=== PATIENT | female | born 1945 | race Caucasian/White ===

== ENCOUNTER 2018-06-08 09:56 | Day surgery (SDC) | payer MEDICARE ==
[~2018-06-08 09:56] MED LIST: ACETAMINOPHEN 325 MG TAB PO; PHENYLEPHRINE 2.5% OPHTH SOL 2ML OD; PROPARACAINE 0.5% OPHTH SOL 15ML OD; TROPICAMIDE 1% OPHTH SOLN 2ML OD
[2018-06-08 10:58] LABS: BEDSIDE GLUCOSE 131 MG/DL (83-110)
[2018-06-08] MEDS ORDERED: PROPOFOL 200 MG/20 ML VIAL As Ordered (11:34)
[2018-06-08] MEDS ORDERED: LIDOCAINE 2% INJ 100 MG/5 ML SDV (FOR ANES.) As Ordered (11:34)
[2018-06-08] MEDS: PILOCARPINE 1% OPHTH SOLN 15 ML OD (11:35)
[2018-06-08] MEDS: OFLOXACIN 0.3 % (OCUFLOX) OPTH SOL 5ML OD (11:35)
[2018-06-08] MEDS: PROPARACAINE 0.5% OPHTH SOL 15ML OD (11:35)
[2018-06-08] MEDS ORDERED: MIDAZOLAM INJ 2 MG/2 ML VIAL (J2250) As Ordered (11:35)
[2018-06-08] MEDS ORDERED: fentaNYL 100 MCG/2 ML INJECTION (J3010) As Ordered (11:35)
[2018-06-08] MEDS: LIDOCAINE 0.75%/EPINEPHRINE 0.025% IN BSS 1ML SYR INTRACAMERAL (OR ONLY) As Ordered (12:10)
[2018-06-08] MEDS: TRYPAN BLUE 0.06 % 2.25 ML OPHTH SYR (VISIONBLUE) As Ordered (12:11)
[2018-06-08] MEDS: BALANCED SALT IRRIGATION SOLUTION 500ML BAG (FOR OR EYE MACHINE) As Ordered (12:16)
[2018-06-08] MEDS ORDERED: ONDANSETRON 4MG/2ML VIAL (J2405) As Ordered (12:34)
[2018-06-08] MEDS ORDERED: ePHEDrine SULFATE 25 MG/5 ML(5MG/ML) SYRINGE As Ordered (12:37)
[2018-06-08] MEDS: DUOVISC (0.50ML VISCOAT/0.55ML PROVISC) OPHTH KIT As Ordered (13:13)
[2018-06-08] MEDS ORDERED: METOCLOPRAMIDE INJ 10MG/2ML VIAL (J2765) As Ordered (13:15)
[2018-06-08] MEDS: ACETYLCHOLINE OPHTH SOLN 1% 2ML (MIOCHOL-E) As Ordered (13:18)
[2018-06-08] MEDS: CEFUROXIME 1MG/0.1ML INTRACAMERAL INJ As Ordered (13:21)
[2018-06-08] MEDS: TOBRADEX OPHTH OINT 3.5 GM As Ordered (13:22)
[2018-06-08] MEDS ORDERED: ONDANSETRON 4MG/2ML VIAL (J2405) IV (14:00)
[2018-06-08] MEDS ORDERED: TRIMETHOBENZAMIDE 300 MG CAP PO (14:00)
== END 2018-06-08 15:15 | disposition home or self-care (01) ==
LOC: M SDC 09:56
DX: H18.51 Endothelial corneal dystrophy (principal); H27.01 Aphakia, right eye; J44.9 Chronic obstructive pulmonary disease, unspecified; I10 Essential (primary) hypertension; E11.9 Type 2 diabetes mellitus without complications; E78.00 Pure hypercholesterolemia, unspecified; E78.4 Other hyperlipidemia; F17.210 Nicotine dependence, cigarettes, uncomplicated; D64.9 Anemia, unspecified; Z79.899 Other long term (current) drug therapy
CPT/HCPCS: 65756

== ENCOUNTER → 2020-10-06 | Outpatient (CLI) | payer MEDICARE ==
[~2020-10-06] MED LIST changes: -ACETAMINOPHEN 325 MG TAB PO; +AMIT24CA7 PO; +ASPI81TA85 PO; +COLA50CA3 PO; +CRES10TA PO; +DULE200A INH; +FURO20TA2 PO; +FURO40TA2 PO; +GLIM4TAB5 PO; +HYDR-3363 PO; +JANU100T PO; +LIPI80TA PO; +LISI5TAB PO; +LOSA25TA14 PO; +METF10004 PO; +METF500T PO; +NAPR220T PO; +NORC1TAB7 PO; +NORCOTAB PO; +OXYC1TAB23 PO; -PHENYLEPHRINE 2.5% OPHTH SOL 2ML OD; +POLY1POW4 PO; -PROPARACAINE 0.5% OPHTH SOL 15ML OD; +SENN-22 PO; +SENNSYP PO; +SOMA350T PO; -TROPICAMIDE 1% OPHTH SOLN 2ML OD; +ZOLP-189 PO
--- NOTE | 2020-10-06 17:45 | REP ---
INDICATION: CKD 4. COMPARISON: 09/06/2016. TECHNIQUE: Real-time sonographic evaluation of the kidneys is performed. FINDINGS: Renal cortical echogenicity pattern is normal bilaterally and contours are smooth. There is no evidence of hydronephrosis or calculus in either kidney. The right kidney measures 10.8 x 4.2 x 4.3 cm. Left renal dimensions are 9.9 x 4.7 x 4.8 cm. A cyst in the upper pole the right kidney measures 2.5 cm in diameter and another in the mid aspect measures 1.7 x 1.0 x 2.1 cm. A cystic structure in the upper pole of the left kidney measures 6 mm. IMPRESSION: Bilateral renal cysts. No hydronephrosis. <Electronically signed by Charbel Aguilera > 10/06/20 [id number]
--- NOTE | 2020-10-06 17:46 | REP ---
INDICATION: CKD 4. COMPARISON: 09/06/2016. TECHNIQUE: Real-time sonographic evaluation of urinary bladder performed. FINDINGS: Bladder is well distended with no mass or calculus. It measures 6.8 x 8.0 x 5.2 cm for total volume of 185 cc. After voiding there is no postvoid residual. IMPRESSION: Unremarkable bladder ultrasound. <Electronically signed by Charbel Aguilera > 10/06/20 [id number]
== END ==
LOC: M RAD 15:30
PROVIDERS: ATTEND Internal Medicine Nephrology
DX: N18.4 Chronic kidney disease, stage 4 (severe) (principal)

== ENCOUNTER → 2020-10-27 | Outpatient (CLI) | payer MEDICARE ==
--- NOTE | 2020-10-27 14:30 | REP ---
INDICATION: CKD STAGE 4, PROTEINURIA, HYPERPARATHYROIDISM. With SPECT imaging. COMPARISON: None. TECHNIQUE: 27.3 mCi of technetium 99 M sestamibi is injected. 15 minutes delay and 3 hour delayed planar images of the neck and chest are acquired. SPECT acquisition is acquired and coronal, sagittal, and axial SPECT images are regenerated. Three-dimensional images are reviewed. FINDINGS: Initial 15 minutes images demonstrate expected salivary and thyroid glandular uptake. The right lobe is larger than the left. There is initial uptake in a nodule at the level of the suprasternal notch just to the right of midline. This fades on 3 hour images along with the rest of the thyroid in this may be a multinodular right thyroid. There is no significant focus of retained uptake on post delayed SPECT or three-dimensional images. IMPRESSION: Pattern suggest multinodular goiter on the right. There is a focus of initial uptake just above the suprasternal notch to the right of midline. This could be further evaluated the soft tissue neck CT study. No definite persistent focus to suggest parathyroid adenoma. <Electronically signed by Jorge Goodrich > 10/27/20 [id number]
== END ==
LOC: M RAD 09:36
PROVIDERS: ATTEND Internal Medicine Nephrology
DX: R80.9 Proteinuria, unspecified (principal); N18.4 Chronic kidney disease, stage 4 (severe); E21.3 Hyperparathyroidism, unspecified
CPT/HCPCS: 78803; A9500

== ENCOUNTER → 2020-11-03 | Outpatient (REF) | payer MEDICARE ==
[2020-11-03 18:24] LABS: TOTAL PROTEIN 7.7 GM/DL (6.4-8.2)
[2020-11-03 18:33] LABS: FREE T4 1.02 NG/DL (0.76-1.46); THYROID STIMULATING HORMONE 3.68 uIU/ML (0.358-3.740)
[2020-11-03 18:37] LABS: HEPATITIS B SURFACE ANTIBODY NEGATIVE (POSITIVE)
[2020-11-03 18:48] LABS: HEPATITIS B SURFACE ANTIGEN NEGATIVE (NEGATIVE)
[2020-11-03 19:16] LABS: HEPATITIS C VIRUS ABY INDEX 0.1 INDEX (<0.8)
[2020-11-03 19:17] LABS: HEPATITIS B CORE ANTIBODY IGM NEGATIVE (NEGATIVE)
[2020-11-04 12:13] LABS: ALBUMIN 4.24 GM/DL (3.29-5.55); ALBUMIN % 55.1 % (55.8-66.1); ALPHA-1-GLOBULIN % 5.1 % (2.9-4.9); ALPHA-1-GLOBULINS 0.39 GM/DL (0.17-0.41); ALPHA-2-GLOBULINS 1.05 GM/DL (0.42-0.99); ALPHA-2-GLOBULINS % 13.6 % (7.1-11.8); BETA-1-GLOBULINS 0.49 GM/DL (0.28-0.60); BETA-1-GLOBULINS % 6.3 % (4.7-7.2); BETA-2-GLOBULINS 0.72 GM/DL (0.19-0.55); BETA-2-GLOBULINS % 9.3 % (3.2-6.5); GAMMA GLOBULIN % 10.6 % (11.1-18.8); GAMMA GLOBULINS 0.82 GM/DL (0.65-1.58)
[2020-11-06 16:10] LABS: ANCA-ATYPICAL <1:20 titer (Neg:<1:20); ANTI DS-DNA AB Negative (Negative); ANTINUCLEAR ANTIBODIES DIRECT Negative (Negative); CYTOPLASMIC NEUTROP AB ANCA-C <1:20 titer (Neg:<1:20); FREE LAMBDA LIGHT CHAINS SERUM 384.1 mg/L (5.7-26.3); KAPPA/LAMBDA RATIO SERUM 0.15 (0.26-1.65); PERINUCLEAR AB ANCA-P <1:20 titer (Neg:<1:20)
== END ==
LOC: M LAB REF 17:02
PROVIDERS: ATTEND Internal Medicine Nephrology
DX: R80.9 Proteinuria, unspecified (principal); E04.2 Nontoxic multinodular goiter

== ENCOUNTER → 2020-11-17 | Outpatient (CLI) | payer MEDICARE ==
--- NOTE | 2020-11-17 08:14 | REP ---
INDICATION: NON TOXIC MULIT GOITER XR 1ST/CT 2ND COMPARISON: 09/29/2015 TECHNIQUE: PA and lateral. FINDINGS: The mediastinum and cardiac silhouette are normal. The lung ochoa demonstrate stable chronic changes without obvious acute consolidation, effusion, or pneumothorax. The skeletal structures are intact and normal. IMPRESSION: Chronic stable changes. No acute cardiopulmonary process appreciated. <Electronically signed by Tate Pierre > 11/17/20 [id number]
--- NOTE | 2020-11-17 08:39 | REP ---
INDICATION: NON TOXIC MULIT GOITER XR 1ST/CT 2ND. Chronic smoker with persistent hypercalcemia. Multinodular goiter on nuclear parathyroid scan. COMPARISON: Comparison radionuclide scan October 27, 2020.. TECHNIQUE: Helical scanning is acquired and 3 mm axial images are re-formatted. Coronal and sagittal MPR images are generated. FINDINGS: Preliminary digital race relations adviser radiographs demonstrate that the maxilla and mandible are edentulous. Parotid and submandibular glands are normal and symmetric. Visualized paranasal sinuses are clear. There is some vascular calcification in the distal internal carotid arteries. No intraorbital abnormality is seen. Visualized intracranial structures are unremarkable. Vascular calcification is also noted at the carotid bifurcations bilaterally. The right thyroid lobe is enlarged and contains 2 observable nodules. The largest of these measures 2.5 x 1.5 x 1.7 cm. There is also is 1.0 cm [place] nodule in the right lobe. The left lobe contains a low-density area measuring 0.8 cm in diameter consistent with a small left-sided nodule. No mass or adenopathy is seen in the neck. The visualized superior mediastinal structures are unremarkable. The lung apices are clear. No bony destructive lesion is seen. There are degenerative spondylosis changes in the cervical spine. The left C2-3 and ceased left C3-4 facet joints appear to be fused. IMPRESSION: Multinodular thyroid with 2 nodules identified on the right and 1 on the left as described above. No extrathyroidal adenopathy. No other evidence of mass. Degenerative spondylosis in the cervical spine. <Electronically signed by Jorge Goodrich > 11/17/20 [id number]
== END ==
LOC: M RAD 07:28
PROVIDERS: ATTEND Internal Medicine Nephrology
DX: N18.4 Chronic kidney disease, stage 4 (severe) (principal); R04.2 Hemoptysis; R82.994 Hypercalciuria; F17.210 Nicotine dependence, cigarettes, uncomplicated; M47.812 Spondylosis without myelopathy or radiculopathy, cervical region; E04.2 Nontoxic multinodular goiter

== ENCOUNTER → 2021-09-16 | Outpatient (REF) | payer MEDICARE | LOC: M LAB REF 17:19 | PROVIDERS: ATTEND Physician Assistant | DX: C44.311 Basal cell carcinoma of skin of nose (principal) | CPT/HCPCS: 11102; 88305; G0463 ==

== ENCOUNTER 2022-07-03 08:04 | Emergency (ER) | payer MEDICARE ==
[~2022-07-03] VITALS: Ht 162.6 cm; Wt 85.9 kg
[2022-07-03 08:04] VITALS: BP 165/91
[~2022-07-03 08:04] MED LIST changes: +LOSA25TA13 PO; -LOSA25TA14 PO
[2022-07-03] MEDS ORDERED: FAMO40TA3 (08:13)
[2022-07-03] MEDS ORDERED: CINA30TA5 (08:13)
[2022-07-03] MEDS ORDERED: GLIP5TAB8 (08:13)
[2022-07-03] MEDS ORDERED: AMLO1TAB24 (08:13)
[2022-07-03] MEDS ORDERED: PREDOPD (08:13)
[2022-07-03] MEDS ORDERED: ALBU2.5V10 (08:13)
== END 2022-07-03 10:29 | disposition home or self-care (01) ==
LOC: M ED 08:04
DX: S83.91XA Sprain of unspecified site of right knee, initial encounter (principal); V48.4XXA Person boarding or alighting a car injured in noncollision transport accident, initial encounter; E11.9 Type 2 diabetes mellitus without complications; I10 Essential (primary) hypertension; J44.9 Chronic obstructive pulmonary disease, unspecified

== ENCOUNTER → 2022-07-08 | Outpatient (CLI) | payer MEDICARE ==
[~2022-07-08] MED LIST changes: +ALBU2.5V10; +AMLO1TAB24; +CINA30TA5; -DULE200A INH; +FAMO40TA3; +GLIP5TAB8; +MOME13HF7 INH; +PREDOPD
== END ==
LOC: M SOG 15:40
PROVIDERS: ATTEND Orthopaedic Surgery Adult Reconstructive Orthopaedic Surgery
DX: M25.561 Pain in right knee (principal); M11.161 Familial chondrocalcinosis, right knee

== ENCOUNTER 2022-11-23 07:48 | Outpatient (RCR) | payer MEDICARE | END 2022-11-30 | LOC: M PT 07:48 | PROVIDERS: ATTEND Orthopaedic Surgery Adult Reconstructive Orthopaedic Surgery | DX: M54.50 Low back pain, unspecified (principal) ==

== ENCOUNTER 2023-01-13 05:39 | Emergency (ER) | payer MEDICARE ==
[~2023-01-13] VITALS: Ht 154.9 cm; Wt 84.4 kg
[2023-01-13] MEDS ORDERED: methylPREDNISolone 125MG 2ML VIAL IV ONE (06:20)
[2023-01-13 06:43] LABS: BASO # 0.1 10^3/uL (0.0-0.2); BASO % 0.7 % (0.0-1.0); EOS # 0.2 10^3/uL (0.0-0.5); EOS % 2.1 % (0.0-3.0); LYMPH # 1.4 10^3/uL (1.5-5.0); LYMPH % 14.6 % (24.0-44.0); MEAN CORPUSCULAR HEMOGLOBIN 29.4 pg (27.0-33.0); MEAN CORPUSCULAR HGB CONC 32.6 g/dl (32.0-36.5); MEAN CORPUSCULAR VOLUME 90.2 fl (80.0-96.0); MONO # 0.6 10^3/uL (0.0-0.8); MONO % 5.8 % (2.0-8.0); NEUTROPHILS # 7.4 10^3/uL (1.5-8.5); NEUTROPHILS % 76.5 % (36.0-66.0); PLATELET COUNT, AUTOMATED 369 10^3/uL (150-450); WHITE BLOOD COUNT 9.7 10^3/uL (4.0-10.0)
[2023-01-13 07:02] LABS: CK-MB VALUE MASS 1.9 NG/ML (<3.6)
[2023-01-13 07:03] LABS: MB/CK RELATIVE INDEX 2.37 (< OR =4)
[2023-01-13 07:04] LABS: ALBUMIN 3.8 G/DL (3.2-5.2); BILIRUBIN,DIRECT 0.1 MG/DL (<0.4); BILIRUBIN,TOTAL 0.3 MG/DL (0.3-1.2); CALCIUM LEVEL 10.6 MG/DL (8.3-10.6); CREATININE FOR GFR 1.53 MG/DL (0.55-1.30); GLOMERULAR FILTRATION RATE 34.9 (>39); POTASSIUM SERUM 4.1 MMOL/L (3.5-5.1); TOTAL PROTEIN 7.2 G/DL (5.7-8.2)
[2023-01-13 07:05] LABS: THYROXINE (T4) 8.9 UG/DL (4.5-10.9)
[2023-01-13 07:06] LABS: THYROID STIMULATING HORMONE 4.381 uIU/ML (0.55-4.78)
[2023-01-13] MEDS ORDERED: ISOVUE-370 76% 100ML VIAL As Ordered ONE (07:20)
[2023-01-13 08:08] LABS: MB/CK RELATIVE INDEX 1.83 (< OR =4)
[2023-01-13 09:25] VITALS: O2SAT 96
[2023-01-13] MEDS ORDERED: ALBUTEROL 90 MCG/ACT 8GM HFA INHALER INH ONE (09:25)
[2023-01-13] MEDS ORDERED: AZITHROMYCIN 250MG TABLET PO ONE (09:25)
[2023-01-13] MEDS ORDERED: PRED10TA2 PO (09:26)
[2023-01-13] MEDS ORDERED: AZIT500T5 PO (09:26)
[2023-01-13] MEDS ORDERED: VENTAER INH (09:26)
[2023-01-13 10:09] VITALS: BP 149/79
== END 2023-01-13 10:11 | disposition home or self-care (01) ==
LOC: M ED 05:39
DX: J44.1 Chronic obstructive pulmonary disease with (acute) exacerbation (principal); J18.9 Pneumonia, unspecified organism; E04.1 Nontoxic single thyroid nodule; E11.9 Type 2 diabetes mellitus without complications; I10 Essential (primary) hypertension; E78.5 Hyperlipidemia, unspecified; F17.200 Nicotine dependence, unspecified, uncomplicated; Z88.8 Allergy status to other drugs, medicaments and biological substances; Z79.84 Long term (current) use of oral hypoglycemic drugs; Z79.51 Long term (current) use of inhaled steroids; Z79.899 Other long term (current) drug therapy
CPT/HCPCS: 36415; 71045; 71275; 80048; 80076; 82550; 82553; 83880; 84436; 84443; 84484; 85025; 87040; 87486; 87581; 87633; 87798; 93005; 93041; 93971; 94640; 94760; 99285; Q9967

== ENCOUNTER 2023-02-19 09:29 | Inpatient (IN) | payer MEDICARE ==
[~2023-02-19] VITALS: Ht 157.5 cm; Wt 84.6 kg
[~2023-02-19 09:29] MED LIST changes: -ALBU2.5V10; +ALBU2.5V10 NEB; -AMLO1TAB24; +AMLO1TAB24 PO; +AZIT500T5 PO; -CINA30TA5; +CINA30TA5 PO; -FAMO40TA3; +FAMO40TA3 PO; -GLIP5TAB8; +GLIP5TAB8 PO; +MIRALAX *UNIT DOSE* 17GM PACKET PO SCH; +PRED10TA2 PO; +VENTAER INH
[2023-02-19] MEDS ORDERED: TOUJ300I2 SC (09:47)
[2023-02-19] MEDS ORDERED: ALBUTEROL SULFATE 2.5MG/0.5ML INH NEB SOLN INH ONE (09:50)
[2023-02-19] MEDS ORDERED: IPRATROPIUM 0.5MG/ALBUTEROL 2.5MG INH SOL UD 3ML (DUONEB) NEB ONE (09:50)
[2023-02-19 10:23] LABS: BASO # 0.1 10^3/uL (0.0-0.2); BASO % 0.5 % (0.0-1.0); EOS # 0.1 10^3/uL (0.0-0.5); EOS % 1.3 % (0.0-3.0); HEMATOCRIT 42.7 % (36.0-47.0); HEMOGLOBIN 13.6 g/dl (12.0-15.5); LYMPH # 1.3 10^3/uL (1.5-5.0); LYMPH % 12.9 % (24.0-44.0); MEAN CORPUSCULAR HEMOGLOBIN 29.3 pg (27.0-33.0); MEAN CORPUSCULAR HGB CONC 31.9 g/dl (32.0-36.5); MONO # 0.8 10^3/uL (0.0-0.8); MONO % 7.3 % (2.0-8.0); NEUTROPHILS # 8.1 10^3/uL (1.5-8.5); NEUTROPHILS % 77.5 % (36.0-66.0); PLATELET COUNT, AUTOMATED 341 10^3/uL (150-450); RED BLOOD COUNT 4.64 10^6/uL (4.00-5.40); WHITE BLOOD COUNT 10.4 10^3/uL (4.0-10.0)
[2023-02-19 10:26] LABS: ABG BASE EXCESS -1.2 (-2.0-2.0); ABG HCO3 22.5 MEQ/L (22.0-26.0); ABG O2 SATURATION 86.9 % (95.0-99.0); ABG PARTIAL PRESSURE CO2 34.9 mmHg (35.0-45.0); ABG STANDARD HCO3 23.2 MEQ/L (22.0-26.0); ABG TOTAL CO2 23.6 MEQ/L (23.0-31.0); ABG pH (ARTERIAL) 7.428 UNITS (7.350-7.450)
[2023-02-19 10:34] LABS: INR 0.89; PROTHROMBIN TIME 12.2 SECONDS (12.5-14.5)
[2023-02-19 10:49] LABS: CK-MB VALUE MASS 1.9 NG/ML (<3.6)
[2023-02-19 10:51] LABS: ALBUMIN 3.1 G/DL (3.2-5.2); BILIRUBIN,DIRECT 0.1 MG/DL (<0.4); BILIRUBIN,TOTAL 0.2 MG/DL (0.3-1.2); CALCIUM LEVEL 9.1 MG/DL (8.3-10.6); CREATININE FOR GFR 1.56 MG/DL (0.55-1.30); GLOMERULAR FILTRATION RATE 34.1 (>39); MB/CK RELATIVE INDEX 1.77 (< OR =4); POTASSIUM SERUM 4.7 MMOL/L (3.5-5.1); TOTAL PROTEIN 6.1 G/DL (5.7-8.2)
[2023-02-19 10:53] LABS: THYROID STIMULATING HORMONE 2.593 uIU/ML (0.55-4.78); THYROXINE (T4) 11.8 UG/DL (4.5-10.9)
[2023-02-19] MEDS ORDERED: AZITHROMYCIN INJ 500 MG, VIAL MATE ADAPTER 1 EACH in D5W 250 ML IV ONE (11:45)
[2023-02-19] MEDS ORDERED: cefTRIAXone SOD 1 GM in D5W MINI-BAG PLUS 50 ML IV ONE (11:45)
[2023-02-19 11:52] LABS: CK-MB VALUE MASS 1.9 NG/ML (<3.6)
[2023-02-19 11:53] LABS: MB/CK RELATIVE INDEX 1.74 (< OR =4)
[2023-02-19] MEDS ORDERED: GLUCOSE 4GM CHEW TABLET PO PRN (12:35)
[2023-02-19] MEDS ORDERED: DEXTROSE 50% 50ML SYRINGE IV PRN (12:35)
[2023-02-19] MEDS ORDERED: GLUCAGON INJ 1MG VIAL SC PRN (12:35)
[2023-02-19] MEDS ORDERED: VENTAER INH (13:53)
[2023-02-19] MEDS ORDERED: ACET-897 PO (13:54)
[2023-02-19] MEDS ORDERED: HOME MED LIST COMPLETE! XX SCH (13:55)
[2023-02-19] MEDS: ALBUTEROL SULFATE 2.5MG/0.5ML INH NEB SOLN NEB SCH ×3 (15:14→23:22)
[2023-02-19] MEDS: IPRATROPIUM 0.02% SOLN 0.5MG 2.5ML NEB INH SCH ×3 (15:14→23:22)
[2023-02-19 15:51] VITALS: BP 129/72
[2023-02-19] MEDS: methylPREDNISolone 125MG 2ML VIAL IV SCH ×2 (16:54→20:37)
[2023-02-19] MEDS: FAMOTIDINE 20 MG TAB PO SCH (16:55)
[2023-02-19] MEDS: SITagliptin 50 MG TAB (JANUVIA) PO SCH (16:55)
[2023-02-19] MEDS: ROSUVASTATIN 10 MG TAB (CRESTOR) PO SCH (16:55)
[2023-02-19] MEDS: INSULIN LISPRO (NovoLOG) PER UNIT SC SCH ×2 (17:07→20:39)
[2023-02-19] MEDS ORDERED: FUROSEMIDE 40MG/4ML VIAL IV ONE (17:40)
[2023-02-19] MEDS: BUDESONIDE 0.5 MG/2 ML INHALATION SUSPENSION INH SCH (19:08)
[2023-02-19 20:00] VITALS: BP 133/65
[2023-02-19] MEDS: amLODIPine 5 MG TAB PO SCH (20:37)
[2023-02-19] MEDS: SENOKOT S TAB PO SCH (20:37)
[2023-02-19] MEDS: LEVEMIR (INSULIN DETEMIR) 1 UNITS/0.01ML SC SCH (20:38)
[2023-02-19] MEDS: LIDOCAINE 5% (LIDODERM) PATCH TD SCH (20:39)
[2023-02-19] MEDS: MIRALAX *UNIT DOSE* 17GM PACKET PO SCH (20:40)
[2023-02-19] MEDS ORDERED: glipiZIDE (GLUCOTROL) 5 MG TAB PO SCH (21:00)
[2023-02-19 23:56] VITALS: BP 134/65
[2023-02-20] MEDS: methylPREDNISolone 125MG 2ML VIAL IV SCH ×4 (03:12→20:01)
[2023-02-20 03:53] VITALS: BP 131/73
[2023-02-20] MEDS: IPRATROPIUM 0.02% SOLN 0.5MG 2.5ML NEB INH SCH ×3 (04:00→11:32)
[2023-02-20] MEDS: ALBUTEROL SULFATE 2.5MG/0.5ML INH NEB SOLN NEB SCH ×3 (04:00→11:32)
[2023-02-20 04:23] LABS: BASO % 0.2 % (0.0-1.0); HEMATOCRIT 42.6 % (36.0-47.0); HEMOGLOBIN 13.6 g/dl (12.0-15.5); LYMPH # 0.8 10^3/uL (1.5-5.0); LYMPH % 4.5 % (24.0-44.0); MEAN CORPUSCULAR HEMOGLOBIN 28.9 pg (27.0-33.0); MEAN CORPUSCULAR HGB CONC 31.9 g/dl (32.0-36.5); MEAN CORPUSCULAR VOLUME 90.4 fl (80.0-96.0); MONO # 0.3 10^3/uL (0.0-0.8); MONO % 1.5 % (2.0-8.0); NEUTROPHILS # 17.1 10^3/uL (1.5-8.5); NEUTROPHILS % 93.3 % (36.0-66.0); PLATELET COUNT, AUTOMATED 365 10^3/uL (150-450); RED BLOOD COUNT 4.71 10^6/uL (4.00-5.40); WHITE BLOOD COUNT 18.3 10^3/uL (4.0-10.0)
[2023-02-20 04:54] LABS: CALCIUM LEVEL 9.9 MG/DL (8.3-10.6); CREATININE FOR GFR 1.58 MG/DL (0.55-1.30); GLOMERULAR FILTRATION RATE 33.6 (>39); POTASSIUM SERUM 4.9 MMOL/L (3.5-5.1)
[2023-02-20] MEDS: SODIUM CHLORIDE NASAL 0.65% SPRAY BTL (OCEAN) PRN ×2 (06:33→20:02)
[2023-02-20] MEDS: BUDESONIDE 0.5 MG/2 ML INHALATION SUSPENSION INH SCH ×2 (07:23→19:07)
[2023-02-20 07:30] VITALS: BP 129/64
[2023-02-20] MEDS: NICOTINE 21MG/24HR 1 EA TRANSDERMAL TD SCH ×2 (09:00→18:00)
[2023-02-20] MEDS: SITagliptin 50 MG TAB (JANUVIA) PO SCH (09:41)
[2023-02-20] MEDS: ROSUVASTATIN 10 MG TAB (CRESTOR) PO SCH (09:41)
[2023-02-20] MEDS: AZITHROMYCIN 250MG TABLET PO SCH (09:42)
[2023-02-20] MEDS: MIRALAX *UNIT DOSE* 17GM PACKET PO SCH ×2 (09:42→20:24)
[2023-02-20] MEDS: SENOKOT S TAB PO SCH ×2 (09:42→20:24)
[2023-02-20] MEDS: FAMOTIDINE 20 MG TAB PO SCH (09:42)
[2023-02-20] MEDS: amLODIPine 5 MG TAB PO SCH ×2 (09:42→20:03)
[2023-02-20] MEDS: ENOXAPARIN 40MG/0.4ML SYRINGE (J1650 PER 10MG) SC SCH (09:43)
[2023-02-20] MEDS: INSULIN LISPRO (NovoLOG) PER UNIT SC SCH ×4 (09:44→20:12)
[2023-02-20] MEDS: guaiFENesin/CODEINE SYRUP 5 ML UDC PO PRN ×2 (10:37→15:51)
[2023-02-20 11:54] VITALS: BP 136/63
[2023-02-20] MEDS: IPRATROPIUM 0.5MG/ALBUTEROL 2.5MG INH SOL UD 3ML (DUONEB) NEB SCH ×2 (15:02→19:08)
[2023-02-20 16:11] VITALS: BP 111/58
[2023-02-20 19:50] VITALS: BP 113/72
[2023-02-20] MEDS: LIDOCAINE 5% (LIDODERM) PATCH TD SCH (20:02)
[2023-02-20] MEDS: LEVEMIR (INSULIN DETEMIR) 1 UNITS/0.01ML SC SCH (20:12)
[2023-02-20] MEDS ORDERED: IPRATROPIUM 0.02% SOLN 0.5MG 2.5ML NEB INH PRN (21:25)
[2023-02-20] MEDS ORDERED: LEVALBUTEROL 1.25MG 0.5ML CONCENTRATE NEB NEB ONE (21:25)
[2023-02-20] MEDS ORDERED: ALBUTEROL SULFATE 2.5MG/0.5ML INH NEB SOLN NEB PRN ×2 (21:55→23:45)
[2023-02-20] MEDS ORDERED: ALBUTEROL SULFATE 2.5MG/0.5ML INH NEB SOLN NEB ONE (22:00)
[2023-02-20] MEDS ORDERED: RAMELTEON 8 MG TAB (ROZEREM) PO PRN (23:50)
[2023-02-21] MEDS ORDERED: hydrOXYzine 50 MG TAB PO ONE
[2023-02-21] MEDS: ALBUTEROL SULFATE 2.5MG/0.5ML INH NEB SOLN NEB SCH ×7 (00:14→23:48)
[2023-02-21] MEDS: IPRATROPIUM 0.02% SOLN 0.5MG 2.5ML NEB INH SCH ×7 (00:14→23:49)
[2023-02-21] MEDS: methylPREDNISolone 125MG 2ML VIAL IV SCH (03:07)
[2023-02-21] MEDS: guaiFENesin/CODEINE SYRUP 5 ML UDC PO PRN ×3 (03:11→21:25)
[2023-02-21 05:10] VITALS: BP 129/71
[2023-02-21 05:56] LABS: BASO % 0.2 % (0.0-1.0); HEMATOCRIT 38.9 % (36.0-47.0); HEMOGLOBIN 12.9 g/dl (12.0-15.5); LYMPH # 0.8 10^3/uL (1.5-5.0); MEAN CORPUSCULAR HEMOGLOBIN 29.8 pg (27.0-33.0); MEAN CORPUSCULAR HGB CONC 33.2 g/dl (32.0-36.5); MEAN CORPUSCULAR VOLUME 89.8 fl (80.0-96.0); MONO # 0.5 10^3/uL (0.0-0.8); MONO % 2.1 % (2.0-8.0); NEUTROPHILS # 24.3 10^3/uL (1.5-8.5); NEUTROPHILS % 93.4 % (36.0-66.0); PLATELET COUNT, AUTOMATED 365 10^3/uL (150-450); RED BLOOD COUNT 4.33 10^6/uL (4.00-5.40)
[2023-02-21 06:21] LABS: CALCIUM LEVEL 9.9 MG/DL (8.3-10.6); CREATININE FOR GFR 1.75 MG/DL (0.55-1.30); GLOMERULAR FILTRATION RATE 29.8 (>39); POTASSIUM SERUM 5.2 MMOL/L (3.5-5.1)
[2023-02-21] MEDS ORDERED: NS 500 ML IV ONE (07:55)
[2023-02-21] MEDS: BUDESONIDE 0.5 MG/2 ML INHALATION SUSPENSION INH SCH ×2 (07:56→21:50)
[2023-02-21] MEDS: INSULIN LISPRO (NovoLOG) PER UNIT SC SCH ×4 (08:07→20:33)
[2023-02-21] MEDS: MIRALAX *UNIT DOSE* 17GM PACKET PO SCH ×2 (08:07→21:25)
[2023-02-21] MEDS: ENOXAPARIN 40MG/0.4ML SYRINGE (J1650 PER 10MG) SC SCH (08:07)
[2023-02-21] MEDS: SITagliptin 50 MG TAB (JANUVIA) PO SCH (08:08)
[2023-02-21] MEDS: FAMOTIDINE 20 MG TAB PO SCH (08:09)
[2023-02-21] MEDS: AZITHROMYCIN 250MG TABLET PO SCH (08:09)
[2023-02-21] MEDS: CINACALCET 30 MG TAB (SENSIPAR) PO SCH (08:09)
[2023-02-21] MEDS: ROSUVASTATIN 10 MG TAB (CRESTOR) PO SCH (08:10)
[2023-02-21] MEDS: SENOKOT S TAB PO SCH ×2 (08:10→21:23)
[2023-02-21] MEDS: NICOTINE 21MG/24HR 1 EA TRANSDERMAL TD SCH (08:35)
[2023-02-21] MEDS: amLODIPine 5 MG TAB PO SCH ×2 (09:00→21:25)
[2023-02-21] MEDS: methylPREDNISolone 40MG 1ML VIAL IV SCH ×2 (10:54→18:13)
[2023-02-21 14:00] VITALS: BP 107/72
[2023-02-21 20:30] VITALS: BP 111/71
[2023-02-21] MEDS ORDERED: LEVEMIR (INSULIN DETEMIR) 1 UNITS/0.01ML SC SCH (21:00)
[2023-02-21] MEDS: LIDOCAINE 5% (LIDODERM) PATCH TD SCH (21:23)
[2023-02-22] MEDS: methylPREDNISolone 40MG 1ML VIAL IV SCH ×3 (02:27→18:01)
[2023-02-22] MEDS: IPRATROPIUM 0.02% SOLN 0.5MG 2.5ML NEB INH SCH ×6 (03:28→23:52)
[2023-02-22] MEDS: ALBUTEROL SULFATE 2.5MG/0.5ML INH NEB SOLN NEB SCH ×6 (03:28→23:52)
[2023-02-22] MEDS ORDERED: D5W/0.9% SODIUM CHLORIDE 1,000 ML IV SCH (04:25)
[2023-02-22] MEDS ORDERED: SALIVA SUBSTITUTE(MOUTHKOTE) BTL MT PRN (04:25)
[2023-02-22 05:56] LABS: BASO # 0.1 10^3/uL (0.0-0.2); BASO % 0.2 % (0.0-1.0); HEMATOCRIT 38.5 % (36.0-47.0); HEMOGLOBIN 12.6 g/dl (12.0-15.5); LYMPH # 0.7 10^3/uL (1.5-5.0); MEAN CORPUSCULAR HEMOGLOBIN 29.3 pg (27.0-33.0); MEAN CORPUSCULAR HGB CONC 32.7 g/dl (32.0-36.5); MEAN CORPUSCULAR VOLUME 89.5 fl (80.0-96.0); MONO # 0.6 10^3/uL (0.0-0.8); MONO % 2.5 % (2.0-8.0); NEUTROPHILS # 22.4 10^3/uL (1.5-8.5); NEUTROPHILS % 92.5 % (36.0-66.0); PLATELET COUNT, AUTOMATED 379 10^3/uL (150-450); WHITE BLOOD COUNT 24.2 10^3/uL (4.0-10.0)
[2023-02-22 06:00] VITALS: BP 116/69
[2023-02-22 06:21] LABS: CALCIUM LEVEL 9.3 MG/DL (8.3-10.6); CREATININE FOR GFR 1.57 MG/DL (0.55-1.30); GLOMERULAR FILTRATION RATE 33.8 (>39); POTASSIUM SERUM 5.3 MMOL/L (3.5-5.1)
[2023-02-22] MEDS: BUDESONIDE 0.5 MG/2 ML INHALATION SUSPENSION INH SCH ×2 (07:19→20:04)
[2023-02-22] MEDS: MIRALAX *UNIT DOSE* 17GM PACKET PO SCH ×2 (09:00→20:57)
[2023-02-22] MEDS: NICOTINE 21MG/24HR 1 EA TRANSDERMAL TD SCH (09:00)
[2023-02-22] MEDS ORDERED: LEVEMIR (INSULIN DETEMIR) 1 UNITS/0.01ML SC SCH (09:00)
[2023-02-22] MEDS: ENOXAPARIN 40MG/0.4ML SYRINGE (J1650 PER 10MG) SC SCH (09:08)
[2023-02-22] MEDS: AZITHROMYCIN 250MG TABLET PO SCH (09:08)
[2023-02-22] MEDS: SITagliptin 50 MG TAB (JANUVIA) PO SCH (09:08)
[2023-02-22] MEDS: CINACALCET 30 MG TAB (SENSIPAR) PO SCH (09:08)
[2023-02-22] MEDS: FAMOTIDINE 20 MG TAB PO SCH (09:08)
[2023-02-22] MEDS: ROSUVASTATIN 10 MG TAB (CRESTOR) PO SCH (09:08)
[2023-02-22] MEDS: SENOKOT S TAB PO SCH ×2 (09:09→20:57)
[2023-02-22] MEDS: amLODIPine 5 MG TAB PO SCH ×2 (09:09→20:56)
[2023-02-22] MEDS: INSULIN LISPRO (NovoLOG) PER UNIT SC SCH ×4 (09:11→20:58)
[2023-02-22] MEDS ORDERED: PATIROMER SORBITEX CALCIUM 8.4 GM POWDER PACKET (VELTASSA) PO ONE (12:00)
[2023-02-22 14:00] VITALS: BP 133/65
[2023-02-22 20:00] VITALS: BP 125/68
[2023-02-22] MEDS: guaiFENesin/CODEINE SYRUP 5 ML UDC PO PRN (20:57)
[2023-02-22] MEDS: LEVEMIR (INSULIN DETEMIR) 1 UNITS/0.01ML SC SCH (20:57)
[2023-02-22] MEDS: LIDOCAINE 5% (LIDODERM) PATCH TD SCH (20:58)
[2023-02-23] MEDS: ACETAMINOPHEN TAB 650MG DOSE (2X325MG) PO PRN (00:28)
[2023-02-23] MEDS: guaiFENesin/CODEINE SYRUP 5 ML UDC PO PRN ×2 (02:31→11:27)
[2023-02-23] MEDS: methylPREDNISolone 40MG 1ML VIAL IV SCH ×3 (02:31→18:00)
[2023-02-23] MEDS: ALBUTEROL SULFATE 2.5MG/0.5ML INH NEB SOLN NEB SCH ×2 (03:21→07:24)
[2023-02-23] MEDS: IPRATROPIUM 0.02% SOLN 0.5MG 2.5ML NEB INH SCH ×2 (03:21→07:24)
[2023-02-23 06:00] VITALS: BP 151/80
[2023-02-23 06:24] LABS: BASO % 0.1 % (0.0-1.0); HEMATOCRIT 40.1 % (36.0-47.0); LYMPH # 0.9 10^3/uL (1.5-5.0); LYMPH % 4.2 % (24.0-44.0); MEAN CORPUSCULAR HEMOGLOBIN 29.1 pg (27.0-33.0); MEAN CORPUSCULAR HGB CONC 32.4 g/dl (32.0-36.5); MEAN CORPUSCULAR VOLUME 89.9 fl (80.0-96.0); MONO % 4.5 % (2.0-8.0); NEUTROPHILS # 18.8 10^3/uL (1.5-8.5); NEUTROPHILS % 88.7 % (36.0-66.0); PLATELET COUNT, AUTOMATED 366 10^3/uL (150-450); RED BLOOD COUNT 4.46 10^6/uL (4.00-5.40); WHITE BLOOD COUNT 21.2 10^3/uL (4.0-10.0)
[2023-02-23 06:45] LABS: CALCIUM LEVEL 10.1 MG/DL (8.3-10.6); CREATININE FOR GFR 1.54 MG/DL (0.55-1.30); GLOMERULAR FILTRATION RATE 34.6 (>39); POTASSIUM SERUM 5.3 MMOL/L (3.5-5.1)
[2023-02-23] MEDS: BUDESONIDE 0.5 MG/2 ML INHALATION SUSPENSION INH SCH ×2 (07:25→19:21)
[2023-02-23] MEDS: LEVEMIR (INSULIN DETEMIR) 1 UNITS/0.01ML SC SCH ×2 (08:07→21:21)
[2023-02-23] MEDS: amLODIPine 5 MG TAB PO SCH ×2 (08:08→21:20)
[2023-02-23] MEDS: MIRALAX *UNIT DOSE* 17GM PACKET PO SCH ×2 (08:09→21:00)
[2023-02-23] MEDS: INSULIN LISPRO (NovoLOG) PER UNIT SC SCH ×4 (08:09→21:00)
[2023-02-23] MEDS: CINACALCET 30 MG TAB (SENSIPAR) PO SCH (08:09)
[2023-02-23] MEDS: SITagliptin 50 MG TAB (JANUVIA) PO SCH (08:09)
[2023-02-23] MEDS: ROSUVASTATIN 10 MG TAB (CRESTOR) PO SCH (08:09)
[2023-02-23] MEDS: FAMOTIDINE 20 MG TAB PO SCH (08:10)
[2023-02-23] MEDS: SENOKOT S TAB PO SCH ×2 (08:10→21:00)
[2023-02-23] MEDS: NICOTINE 21MG/24HR 1 EA TRANSDERMAL TD SCH (08:10)
[2023-02-23] MEDS ORDERED: TIOT18INH INH (10:15)
[2023-02-23] MEDS: guaiFENesin ER 600 MG TAB PO SCH ×2 (10:20→21:19)
[2023-02-23] MEDS: SODIUM CHLORIDE HYPERTONIC 3% 15ML NEB SOL INH SCH ×4 (10:55→23:11)
[2023-02-23] MEDS: IPRATROPIUM 0.5MG/ALBUTEROL 2.5MG INH SOL UD 3ML (DUONEB) NEB SCH ×4 (10:55→23:11)
[2023-02-23] MEDS ORDERED: PATIROMER SORBITEX CALCIUM 8.4 GM POWDER PACKET (VELTASSA) PO ONE (12:00)
[2023-02-23] MEDS: FLUTICASONE PROP 0.05% NASAL SPRAY 16 GM (FLONASE) NARES SCH ×2 (12:13→21:21)
[2023-02-23 14:00] VITALS: BP 140/78
[2023-02-23] MEDS: HEPARIN SOD (PORCINE) 5000UNITS/ML 1ML VIAL/SYRINGE SQ SCH ×2 (14:26→21:19)
[2023-02-23 20:00] VITALS: BP 144/77
[2023-02-23] MEDS: LIDOCAINE 5% (LIDODERM) PATCH TD SCH (21:20)
[2023-02-24] MEDS: IPRATROPIUM 0.5MG/ALBUTEROL 2.5MG INH SOL UD 3ML (DUONEB) NEB SCH ×4 (03:27→20:06)
[2023-02-24] MEDS: SODIUM CHLORIDE HYPERTONIC 3% 15ML NEB SOL INH SCH ×2 (03:27→07:12)
[2023-02-24] MEDS: methylPREDNISolone 40MG 1ML VIAL IV SCH (03:49)
[2023-02-24] MEDS: HEPARIN SOD (PORCINE) 5000UNITS/ML 1ML VIAL/SYRINGE SQ SCH ×3 (05:32→21:23)
[2023-02-24 06:00] VITALS: BP 128/76
[2023-02-24] MEDS: BUDESONIDE 0.5 MG/2 ML INHALATION SUSPENSION INH SCH ×2 (07:11→20:06)
[2023-02-24 07:15] LABS: BASO # 0.1 10^3/uL (0.0-0.2); BASO % 0.3 % (0.0-1.0); HEMATOCRIT 40.6 % (36.0-47.0); LYMPH # 0.7 10^3/uL (1.5-5.0); LYMPH % 4.1 % (24.0-44.0); MEAN CORPUSCULAR HEMOGLOBIN 28.9 pg (27.0-33.0); MEAN CORPUSCULAR VOLUME 90.2 fl (80.0-96.0); MONO # 0.8 10^3/uL (0.0-0.8); MONO % 4.6 % (2.0-8.0); NEUTROPHILS # 15.8 10^3/uL (1.5-8.5); NEUTROPHILS % 88.5 % (36.0-66.0); PLATELET COUNT, AUTOMATED 366 10^3/uL (150-450); WHITE BLOOD COUNT 17.9 10^3/uL (4.0-10.0)
[2023-02-24 07:38] LABS: CALCIUM LEVEL 9.8 MG/DL (8.3-10.6); CREATININE FOR GFR 1.46 MG/DL (0.55-1.30); GLOMERULAR FILTRATION RATE 36.8 (>39); POTASSIUM SERUM 5.5 MMOL/L (3.5-5.1)
[2023-02-24] MEDS: FORMOTEROL FUMARATE 20 MCG/2 ML INHALATION SOLUTION (PERFOROMIST) INH SCH ×2 (08:00→20:06)
[2023-02-24] MEDS: MIRALAX *UNIT DOSE* 17GM PACKET PO SCH ×2 (09:00→21:00)
[2023-02-24] MEDS: NICOTINE 21MG/24HR 1 EA TRANSDERMAL TD SCH (09:00)
[2023-02-24] MEDS: LEVEMIR (INSULIN DETEMIR) 1 UNITS/0.01ML SC SCH ×2 (09:13→21:23)
[2023-02-24] MEDS: INSULIN LISPRO (NovoLOG) PER UNIT SC SCH ×4 (09:13→21:00)
[2023-02-24] MEDS: ROSUVASTATIN 10 MG TAB (CRESTOR) PO SCH (09:14)
[2023-02-24] MEDS: SENOKOT S TAB PO SCH ×2 (09:14→21:00)
[2023-02-24] MEDS: FAMOTIDINE 20 MG TAB PO SCH (09:14)
[2023-02-24] MEDS: CINACALCET 30 MG TAB (SENSIPAR) PO SCH (09:14)
[2023-02-24] MEDS: guaiFENesin ER 600 MG TAB PO SCH ×2 (09:14→21:22)
[2023-02-24] MEDS: SITagliptin 50 MG TAB (JANUVIA) PO SCH (09:14)
[2023-02-24] MEDS: amLODIPine 5 MG TAB PO SCH ×2 (09:15→21:24)
[2023-02-24] MEDS: FLUTICASONE PROP 0.05% NASAL SPRAY 16 GM (FLONASE) NARES SCH ×2 (09:15→21:24)
[2023-02-24] MEDS ORDERED: FUROSEMIDE 20MG/2ML VIAL IV ONE (09:45)
[2023-02-24] MEDS: methylPREDNISolone 125MG 2ML VIAL IV SCH ×2 (12:41→18:31)
[2023-02-24] MEDS: PIPERACILLIN/TAZOBACTAM SOD 2.25 GM in D5W MINI-BAG PLUS 50 ML IV SCH ×3 (12:41→22:15)
[2023-02-24] MEDS: PATIROMER SORBITEX CALCIUM 8.4 GM POWDER PACKET (VELTASSA) PO SCH (12:44)
[2023-02-24 14:00] VITALS: BP 157/77
[2023-02-24 20:00] VITALS: BP 149/76
[2023-02-24 20:07] VITALS: O2SAT 94
[2023-02-24] MEDS: LIDOCAINE 5% (LIDODERM) PATCH TD SCH (21:23)
[2023-02-25] MEDS: IPRATROPIUM 0.5MG/ALBUTEROL 2.5MG INH SOL UD 3ML (DUONEB) NEB SCH ×4 (01:15→20:33)
[2023-02-25] MEDS: methylPREDNISolone 125MG 2ML VIAL IV SCH ×3 (02:58→22:18)
[2023-02-25] MEDS: PIPERACILLIN/TAZOBACTAM SOD 2.25 GM in D5W MINI-BAG PLUS 50 ML IV SCH ×4 (05:17→22:19)
[2023-02-25] MEDS: HEPARIN SOD (PORCINE) 5000UNITS/ML 1ML VIAL/SYRINGE SQ SCH ×3 (05:18→22:18)
[2023-02-25 06:00] VITALS: BP 149/79
[2023-02-25 06:57] LABS: BASO # 0.1 10^3/uL (0.0-0.2); BASO % 0.5 % (0.0-1.0); HEMATOCRIT 40.3 % (36.0-47.0); HEMOGLOBIN 13.3 g/dl (12.0-15.5); LYMPH # 0.7 10^3/uL (1.5-5.0); MEAN CORPUSCULAR HEMOGLOBIN 29.6 pg (27.0-33.0); MEAN CORPUSCULAR VOLUME 89.8 fl (80.0-96.0); MONO # 0.8 10^3/uL (0.0-0.8); MONO % 4.4 % (2.0-8.0); NEUTROPHILS # 15.5 10^3/uL (1.5-8.5); NEUTROPHILS % 87.5 % (36.0-66.0); PLATELET COUNT, AUTOMATED 381 10^3/uL (150-450); RED BLOOD COUNT 4.49 10^6/uL (4.00-5.40); WHITE BLOOD COUNT 17.7 10^3/uL (4.0-10.0)
[2023-02-25 07:27] LABS: CALCIUM LEVEL 9.6 MG/DL (8.3-10.6); CREATININE FOR GFR 1.54 MG/DL (0.55-1.30); GLOMERULAR FILTRATION RATE 34.6 (>39); POTASSIUM SERUM 5.3 MMOL/L (3.5-5.1)
[2023-02-25] MEDS: FORMOTEROL FUMARATE 20 MCG/2 ML INHALATION SOLUTION (PERFOROMIST) INH SCH ×2 (08:07→20:40)
[2023-02-25] MEDS: BUDESONIDE 0.5 MG/2 ML INHALATION SUSPENSION INH SCH ×2 (08:07→20:33)
[2023-02-25] MEDS: FLUTICASONE PROP 0.05% NASAL SPRAY 16 GM (FLONASE) NARES SCH ×2 (08:47→22:18)
[2023-02-25] MEDS: LEVEMIR (INSULIN DETEMIR) 1 UNITS/0.01ML SC SCH ×2 (08:47→22:20)
[2023-02-25] MEDS: INSULIN LISPRO (NovoLOG) PER UNIT SC SCH ×4 (08:47→22:20)
[2023-02-25] MEDS: CINACALCET 30 MG TAB (SENSIPAR) PO SCH (08:49)
[2023-02-25] MEDS: ROSUVASTATIN 10 MG TAB (CRESTOR) PO SCH (08:49)
[2023-02-25] MEDS: SITagliptin 50 MG TAB (JANUVIA) PO SCH (08:49)
[2023-02-25] MEDS: guaiFENesin ER 600 MG TAB PO SCH ×2 (08:49→22:17)
[2023-02-25] MEDS: amLODIPine 5 MG TAB PO SCH ×2 (08:50→22:21)
[2023-02-25] MEDS: FAMOTIDINE 20 MG TAB PO SCH (08:50)
[2023-02-25] MEDS: MIRALAX *UNIT DOSE* 17GM PACKET PO SCH ×2 (08:51→21:00)
[2023-02-25] MEDS: SENOKOT S TAB PO SCH ×2 (08:51→21:00)
[2023-02-25] MEDS: NICOTINE 21MG/24HR 1 EA TRANSDERMAL TD SCH (08:51)
[2023-02-25] MEDS ORDERED: AZITHROMYCIN 250MG TABLET PO SCH (09:00)
[2023-02-25] MEDS ORDERED: FUROSEMIDE 40MG/4ML VIAL IV ONE (11:20)
[2023-02-25] MEDS: PATIROMER SORBITEX CALCIUM 8.4 GM POWDER PACKET (VELTASSA) PO SCH (12:01)
[2023-02-25 14:00] VITALS: BP 134/63
[2023-02-25 21:27] VITALS: BP 128/62
[2023-02-25] MEDS: LIDOCAINE 5% (LIDODERM) PATCH TD SCH (22:19)
[2023-02-26] MEDS ORDERED: BACITRACIN OINTMENT 30GM TUBE TOP PRN (00:05)
[2023-02-26] MEDS: ACETAMINOPHEN TAB 650MG DOSE (2X325MG) PO PRN ×2 (00:12→11:59)
[2023-02-26] MEDS: IPRATROPIUM 0.5MG/ALBUTEROL 2.5MG INH SOL UD 3ML (DUONEB) NEB SCH ×3 (01:23→13:26)
[2023-02-26] MEDS: HEPARIN SOD (PORCINE) 5000UNITS/ML 1ML VIAL/SYRINGE SQ SCH ×2 (05:25→14:00)
[2023-02-26] MEDS: PIPERACILLIN/TAZOBACTAM SOD 2.25 GM in D5W MINI-BAG PLUS 50 ML IV SCH ×2 (05:26→10:53)
[2023-02-26 05:44] VITALS: BP 122/63
[2023-02-26 06:26] LABS: BASO # 0.1 10^3/uL (0.0-0.2); BASO % 0.5 % (0.0-1.0); HEMATOCRIT 40.5 % (36.0-47.0); HEMOGLOBIN 13.3 g/dl (12.0-15.5); LYMPH # 0.7 10^3/uL (1.5-5.0); LYMPH % 3.7 % (24.0-44.0); MEAN CORPUSCULAR HGB CONC 32.8 g/dl (32.0-36.5); MEAN CORPUSCULAR VOLUME 88.4 fl (80.0-96.0); MONO # 0.8 10^3/uL (0.0-0.8); MONO % 4.4 % (2.0-8.0); NEUTROPHILS # 16.1 10^3/uL (1.5-8.5); NEUTROPHILS % 87.8 % (36.0-66.0); PLATELET COUNT, AUTOMATED 387 10^3/uL (150-450); RED BLOOD COUNT 4.58 10^6/uL (4.00-5.40); WHITE BLOOD COUNT 18.3 10^3/uL (4.0-10.0)
[2023-02-26 06:48] LABS: CALCIUM LEVEL 9.3 MG/DL (8.3-10.6); CREATININE FOR GFR 1.54 MG/DL (0.55-1.30); GLOMERULAR FILTRATION RATE 34.6 (>39); POTASSIUM SERUM 4.4 MMOL/L (3.5-5.1)
[2023-02-26] MEDS: FORMOTEROL FUMARATE 20 MCG/2 ML INHALATION SOLUTION (PERFOROMIST) INH SCH (07:30)
[2023-02-26] MEDS: BUDESONIDE 0.5 MG/2 ML INHALATION SUSPENSION INH SCH (07:30)
[2023-02-26] MEDS: ROSUVASTATIN 10 MG TAB (CRESTOR) PO SCH (08:47)
[2023-02-26] MEDS: INSULIN LISPRO (NovoLOG) PER UNIT SC SCH ×3 (08:47→16:50)
[2023-02-26] MEDS: LEVEMIR (INSULIN DETEMIR) 1 UNITS/0.01ML SC SCH (08:47)
[2023-02-26] MEDS: guaiFENesin ER 600 MG TAB PO SCH (08:47)
[2023-02-26] MEDS: SENOKOT S TAB PO SCH (08:48)
[2023-02-26] MEDS: SITagliptin 50 MG TAB (JANUVIA) PO SCH (08:48)
[2023-02-26] MEDS: NICOTINE 21MG/24HR 1 EA TRANSDERMAL TD SCH (08:48)
[2023-02-26] MEDS: MIRALAX *UNIT DOSE* 17GM PACKET PO SCH (08:48)
[2023-02-26] MEDS: FAMOTIDINE 20 MG TAB PO SCH (08:48)
[2023-02-26 08:50] VITALS: BP 120/64
[2023-02-26] MEDS: amLODIPine 5 MG TAB PO SCH (08:50)
[2023-02-26] MEDS: FLUTICASONE PROP 0.05% NASAL SPRAY 16 GM (FLONASE) NARES SCH (08:50)
[2023-02-26 10:45] LABS: ABG BASE EXCESS 0.9 (-2.0-2.0); ABG HCO3 24.3 MMOL/L (22.0-26.0); ABG O2 SATURATION 99.2 % (95.0-99.0); ABG PARTIAL PRESSURE O2 163.3 mmHg (75.0-100.0); ABG STANDARD HCO3 25.3 MMOL/L. (22.0-26.0); ABG TOTAL CO2 25.4 MMOL/L (23.0-31.0); ABG pH (ARTERIAL) 7.459 UNITS (7.350-7.450)
[2023-02-26] MEDS: methylPREDNISolone 125MG 2ML VIAL IV SCH (10:53)
[2023-02-26] MEDS: PATIROMER SORBITEX CALCIUM 8.4 GM POWDER PACKET (VELTASSA) PO SCH (11:59)
[2023-02-26 14:00] VITALS: BP 116/67
[2023-02-26] MEDS ORDERED: LEVO1TAB40 PO ×2 (16:27→16:43)
[2023-02-26] MEDS ORDERED: PRED10TA2 PO (16:27)
[2023-02-26] MEDS ORDERED: VELT1POW PO (16:27)
[2023-02-26] MEDS ORDERED: MUCI600T31 PO (16:27)
[2023-02-26] MEDS ORDERED: BACI50OI TOP (16:27)
[2023-02-26] MEDS ORDERED: TREL1AER PO (16:27)
[2023-02-26] MEDS ORDERED: TOUJ300I2 SC (16:27)
[2023-02-26] MEDS ORDERED: AZIT-12 PO (16:29)
[2023-02-26] MEDS ORDERED: PRED20TA PO (16:29)
[2023-02-26] MEDS ORDERED: IPRA0.00 INH (16:29)
[2023-02-26] MEDS ORDERED: FLON1SPR NARES (17:43)
[2023-02-26] MEDS ORDERED: LevoFLOXacin 750 MG TABLET PO SCH (18:00)
[2023-02-27] MEDS ORDERED: predniSONE 20 MG TAB PO SCH (09:00)
== END 2023-02-26 17:43 | disposition home health service (06) | DRG 193 ==
LOC: EDBD 09:29 → M ED 09:29 → M MSPAV 12:31 → M ED INP 12:31 → M PCU 15:29 → M MSPAV 02-20 18:38
PROVIDERS: ADMIT Internal Medicine Nephrology; ATTEND Internal Medicine
PROC: B246ZZZ Ultrasonography of Right and Left Heart (ICD-10-PCS; principal; 2023-02-21)
DX: J12.3 Human metapneumovirus pneumonia (principal); J96.01 Acute respiratory failure with hypoxia; J44.0 Chronic obstructive pulmonary disease with (acute) lower respiratory infection; J44.1 Chronic obstructive pulmonary disease with (acute) exacerbation; I50.32 Chronic diastolic (congestive) heart failure; I13.0 Hypertensive heart and chronic kidney disease with heart failure and stage 1 through stage 4 chronic kidney disease, or unspecified chronic kidney disease; N17.9 Acute kidney failure, unspecified; J81.1 Chronic pulmonary edema; K59.09 Other constipation; M54.50 Low back pain, unspecified; R60.0 Localized edema; F17.200 Nicotine dependence, unspecified, uncomplicated; E78.5 Hyperlipidemia, unspecified; K76.0 Fatty (change of) liver, not elsewhere classified; M15.9 Polyosteoarthritis, unspecified; E66.9 Obesity, unspecified; G89.29 Other chronic pain; N18.30 Chronic kidney disease, stage 3 unspecified; E11.22 Type 2 diabetes mellitus with diabetic chronic kidney disease; K57.90 Diverticulosis of intestine, part unspecified, without perforation or abscess without bleeding; K64.9 Unspecified hemorrhoids; E04.2 Nontoxic multinodular goiter; L97.529 Non-pressure chronic ulcer of other part of left foot with unspecified severity; M77.32 Calcaneal spur, left foot; M47.812 Spondylosis without myelopathy or radiculopathy, cervical region; E11.621 Type 2 diabetes mellitus with foot ulcer; E11.65 Type 2 diabetes mellitus with hyperglycemia; E87.5 Hyperkalemia; K21.9 Gastro-esophageal reflux disease without esophagitis; K44.9 Diaphragmatic hernia without obstruction or gangrene; Z96.652 Presence of left artificial knee joint; Z98.41 Cataract extraction status, right eye; Z98.42 Cataract extraction status, left eye; Z88.8 Allergy status to other drugs, medicaments and biological substances; Z79.4 Long term (current) use of insulin; Z85.828 Personal history of other malignant neoplasm of skin

== ENCOUNTER → 2023-02-28 | Outpatient (CLI) | payer MEDICARE ==
[~2023-02-28] MED LIST changes: +ACET-897 PO; +AZIT-12 PO; +BACI50OI TOP; +FLON1SPR NARES; +IPRA0.00 INH; +LEVO1TAB40 PO; -MIRALAX *UNIT DOSE* 17GM PACKET PO SCH; +MUCI600T31 PO; +PRED20TA PO; +TIOT18INH INH; +TOUJ300I2 SC; +TREL1AER PO; +VELT1POW PO
== END ==
LOC: M SOG 08:03
PROVIDERS: ATTEND Orthopaedic Surgery
DX: M54.50 Low back pain, unspecified (principal)

== ENCOUNTER → 2023-04-28 | Outpatient (CLI) | payer MEDICARE | LOC: M RAD 12:58 | PROVIDERS: ATTEND Surgery | DX: L97.522 Non-pressure chronic ulcer of other part of left foot with fat layer exposed (principal); R68.89 Other general symptoms and signs ==

== ENCOUNTER → 2023-06-08 | Outpatient (CLI) | payer MEDICARE ==
[~2023-06-08] MED LIST changes: +BUDE10.7 INH; +SANT250O8 TOP
[2023-06-08 11:16] LABS: HEMATOCRIT 39.2 % (36.0-47.0); HEMOGLOBIN 12.8 g/dl (12.0-15.5); MEAN CORPUSCULAR HEMOGLOBIN 29.8 pg (27.0-33.0); MEAN CORPUSCULAR HGB CONC 32.7 g/dl (32.0-36.5); MEAN CORPUSCULAR VOLUME 91.2 fl (80.0-96.0); PLATELET COUNT, AUTOMATED 344 10^3/uL (150-450); WHITE BLOOD COUNT 8.8 10^3/uL (4.0-10.0)
[2023-06-08 11:28] LABS: INR 0.84; PARTIAL THROMBOPLASTIN TIME 26.8 SECONDS (24.8-34.2); PROTHROMBIN TIME 11.7 SECONDS (12.5-14.5)
[2023-06-08 11:50] LABS: CREATININE FOR GFR 1.71 MG/DL (0.55-1.30); GLOMERULAR FILTRATION RATE 30.7 (>39); MAGNESIUM LEVEL 1.9 MG/DL (1.8-2.4); POTASSIUM SERUM 4.3 MMOL/L (3.5-5.1)
== END ==
LOC: M LAB 10:47
PROVIDERS: ATTEND Surgery Vascular Surgery
DX: I70.245 Atherosclerosis of native arteries of left leg with ulceration of other part of foot (principal)

== ENCOUNTER → 2023-06-10 | Outpatient (CLI) | payer MEDICARE ==
[~2023-06-10] VITALS: Ht 157.5 cm; Wt 81.6 kg
[~2023-06-10] MED LIST changes: +ASPIRIN 325 MG TAB As Ordered ONE; +ASPIRIN 325 MG TAB PO ONE; +CLOP75TA2 PO; +CLOPIDOGREL 300 MG TAB (PLAVIX) As Ordered ONE; +CLOPIDOGREL 300 MG TAB (PLAVIX) PO ONE; +DEXTROSE 50% 50ML SYRINGE As Ordered ONE; +DEXTROSE 50% 50ML SYRINGE IV ONE; +FAMOTIDINE 20MG/2ML VIAL IVP STA; +HEPARIN 1,000UNITS/ML 10ML VIAL (FOR RADIOLOGY & DIALYSIS ONLY) As Ordered ONE; +ISOVUE-300 61% 100ML VIAL As Ordered ONE; +LIDOCAINE 1% MDV 20ML VIAL As Ordered ONE; +MIDAZOLAM INJ 2MG/2ML VIAL As Ordered ONE; +NS 1,000 ML IV SCH; +ceFAZolin 2 GM/D5W 50 ML IV BAG As Ordered ONE; +ceFAZolin SOD 2 GM in IV 1 EA IV ONE; +diphenhydrAMINE 50MG/ML VIAL As Ordered ONE; +diphenhydrAMINE 50MG/ML VIAL IV ONE; +fentaNYL 100 MCG/2 ML INJECTION As Ordered ONE; +methylPREDNISolone 125MG 2ML VIAL As Ordered ONE; +methylPREDNISolone 125MG 2ML VIAL IV STA
[2023-06-10 11:28] VITALS: TEMP 98.2
[2023-06-10 12:26] LABS: CREATININE FOR GFR 1.5 MG/DL (0.55-1.30); GLOMERULAR FILTRATION RATE 35.7 (>39)
[2023-06-10 17:00] VITALS: BP 169/80; O2SAT 94
== END ==
LOC: M IRPRO 11:08
PROVIDERS: ATTEND Surgery Vascular Surgery
DX: I70.245 Atherosclerosis of native arteries of left leg with ulceration of other part of foot (principal)
CPT/HCPCS: 37226; 82565; 86850; 86900; 86901; 99152; 99153; C1725; C1760; C1874; J0690; J1200; J2250; J2930; J3010; Q9967

== ENCOUNTER → 2023-06-30 | Outpatient (CLI) | payer MEDICARE ==
[~2023-06-30] MED LIST changes: -ASPIRIN 325 MG TAB As Ordered ONE; -ASPIRIN 325 MG TAB PO ONE; -CLOPIDOGREL 300 MG TAB (PLAVIX) As Ordered ONE; -CLOPIDOGREL 300 MG TAB (PLAVIX) PO ONE; -DEXTROSE 50% 50ML SYRINGE As Ordered ONE; -DEXTROSE 50% 50ML SYRINGE IV ONE; -FAMOTIDINE 20MG/2ML VIAL IVP STA; -HEPARIN 1,000UNITS/ML 10ML VIAL (FOR RADIOLOGY & DIALYSIS ONLY) As Ordered ONE; -ISOVUE-300 61% 100ML VIAL As Ordered ONE; -LIDOCAINE 1% MDV 20ML VIAL As Ordered ONE; -MIDAZOLAM INJ 2MG/2ML VIAL As Ordered ONE; -NS 1,000 ML IV SCH; -ceFAZolin 2 GM/D5W 50 ML IV BAG As Ordered ONE; -ceFAZolin SOD 2 GM in IV 1 EA IV ONE; -diphenhydrAMINE 50MG/ML VIAL As Ordered ONE; -diphenhydrAMINE 50MG/ML VIAL IV ONE; -fentaNYL 100 MCG/2 ML INJECTION As Ordered ONE; -methylPREDNISolone 125MG 2ML VIAL As Ordered ONE; -methylPREDNISolone 125MG 2ML VIAL IV STA
== END ==
LOC: M RAD 14:40
PROVIDERS: ATTEND Surgery Vascular Surgery
DX: I73.9 Peripheral vascular disease, unspecified (principal)

== ENCOUNTER → 2023-12-02 | Outpatient (CLI) | payer MEDICARE ==
[~2023-12-02] MED LIST changes: +GLIP5TAB17 PO; -GLIP5TAB8 PO
[2023-12-02 09:49] LABS: CREATININE, URINE 88.4 MG/DL
[2023-12-02 09:50] LABS: MAU/CREAT RATIO 15.8 MCG/MG (0.0-30.0)
[2023-12-02 09:51] LABS: CHOLESTEROL RISK RATIO 4.16 (<5); HDL CHOLESTEROL 44.7 MG/DL (>40); LDL CHOLESTEROL 116.7 MG/DL (<100); NON-HDL-C 141.3 MG/DL
[2023-12-02 10:22] LABS: HEMOGLOBIN A1c 6.2 % (4.0-6.0)
== END ==
LOC: M LAB 08:32
PROVIDERS: ATTEND Family Medicine
DX: E11.40 Type 2 diabetes mellitus with diabetic neuropathy, unspecified (principal)

== ENCOUNTER → 2024-03-01 | Outpatient (CLI) | payer MEDICARE ==
[2024-03-01 12:02] LABS: BASO # 0.1 10^3/uL (0.0-0.2); BASO % 0.8 % (0.0-1.0); EOS # 0.3 10^3/uL (0.0-0.5); EOS % 2.1 % (0.0-3.0); HEMATOCRIT 39.1 % (36.0-47.0); HEMOGLOBIN 12.5 g/dl (12.0-15.5); LYMPH # 1.7 10^3/uL (1.5-5.0); LYMPH % 13.8 % (24.0-44.0); MEAN CORPUSCULAR HEMOGLOBIN 28.9 pg (27.0-33.0); MEAN CORPUSCULAR VOLUME 90.3 fl (80.0-96.0); MONO # 0.9 10^3/uL (0.0-0.8); MONO % 7.5 % (2.0-8.0); NEUTROPHILS # 9.5 10^3/uL (1.5-8.5); NEUTROPHILS % 75.5 % (36.0-66.0); PLATELET COUNT, AUTOMATED 422 10^3/uL (150-450); RED BLOOD COUNT 4.33 10^6/uL (4.00-5.40); WHITE BLOOD COUNT 12.5 10^3/uL (4.0-10.0)
[2024-03-01 12:13] LABS: ALBUMIN 3.7 G/DL (3.2-5.2); BILIRUBIN,TOTAL 0.3 MG/DL (0.3-1.2); CALCIUM LEVEL 10.2 MG/DL (8.3-10.6); CHOLESTEROL RISK RATIO 3.93 (<5); CREATININE FOR GFR 1.63 MG/DL (0.55-1.30); GLOMERULAR FILTRATION RATE 32.3 (>32); HDL CHOLESTEROL 49.1 MG/DL (>40); LDL CHOLESTEROL 119.9 MG/DL (<100); NON-HDL-C 143.9 MG/DL; POTASSIUM SERUM 3.8 MMOL/L (3.5-5.1); TOTAL PROTEIN 6.8 G/DL (5.7-8.2)
[2024-03-01 12:23] LABS: CREATININE, URINE 22.4 MG/DL; MALB URINE SIEMENS < 3.0 MG/L; MAU/CREAT RATIO 13.3 MCG/MG (0.0-30.0)
[2024-03-01 13:43] LABS: HEMOGLOBIN A1c 5.7 % (4.0-6.0)
== END ==
LOC: M WUC 09:57
PROVIDERS: ATTEND Family Medicine
DX: E11.40 Type 2 diabetes mellitus with diabetic neuropathy, unspecified (principal); I10 Essential (primary) hypertension; I73.9 Peripheral vascular disease, unspecified

== ENCOUNTER → 2024-06-04 | Outpatient (CLI) | payer MEDICARE ==
[~2024-06-04] MED LIST changes: +PROHANCE 279.3MG/ML 15ML VIAL ONE; +PROHANCE 279.3MG/ML 5ML VIAL ONE
== END ==
LOC: M PLAIMG 14:29
PROVIDERS: ATTEND Physical Medicine & Rehabilitation
DX: M51.37 Other intervertebral disc degeneration, lumbosacral region (principal)
CPT/HCPCS: 72158; A9576

== ENCOUNTER → 2024-07-05 | Outpatient (CLI) | payer MEDICARE ==
[~2024-07-05] MED LIST changes: +FURO20TA2; +GABA-1171 PO; +JANU100T; -PROHANCE 279.3MG/ML 15ML VIAL ONE; -PROHANCE 279.3MG/ML 5ML VIAL ONE
== END ==
LOC: M RAD 14:14
PROVIDERS: ATTEND Internal Medicine
DX: R10.9 Unspecified abdominal pain (principal)

== ENCOUNTER 2024-07-18 08:32 | Emergency (ER) | payer MEDICARE, MEDICAID ==
[~2024-07-18] VITALS: Ht 165.1 cm; Wt 82.2 kg
[~2024-07-18 08:32] MED LIST changes: -FURO20TA2; -GABA-1171 PO; -JANU100T
[2024-07-18] MEDS ORDERED: FURO20TA2 (08:45)
[2024-07-18] MEDS ORDERED: JANU100T (08:45)
[2024-07-18] MEDS: ACETAMINOPHEN 325 MG TAB PO ONE (09:51)
[2024-07-18 10:12] LABS: BASO # 0.1 10^3/uL (0.0-0.2); BASO % 0.4 % (0.0-1.0); EOS # 0.2 10^3/uL (0.0-0.5); HEMATOCRIT 37.1 % (36.0-47.0); HEMOGLOBIN 12.1 g/dl (12.0-15.5); LYMPH # 1.5 10^3/uL (1.5-5.0); LYMPH % 13.1 % (24.0-44.0); MEAN CORPUSCULAR HGB CONC 32.6 g/dl (32.0-36.5); MONO # 0.9 10^3/uL (0.0-0.8); MONO % 7.8 % (2.0-8.0); NEUTROPHILS # 8.8 10^3/uL (1.5-8.5); NEUTROPHILS % 76.4 % (36.0-66.0); PLATELET COUNT, AUTOMATED 335 10^3/uL (150-450); RED BLOOD COUNT 4.17 10^6/uL (4.00-5.40); WHITE BLOOD COUNT 11.6 10^3/uL (4.0-10.0)
[2024-07-18 10:17] LABS: ERYTHROCYTE SEDIMENTATION RATE 85 mm/hr (0-30)
[2024-07-18 10:23] LABS: INR 0.89; PROTHROMBIN TIME 11.8 SECONDS (12.5-14.5)
[2024-07-18 10:42] LABS: CALCIUM LEVEL 9.5 MG/DL (8.3-10.6); CREATININE FOR GFR 1.6 MG/DL (0.55-1.30); POTASSIUM SERUM 4.5 MMOL/L (3.5-5.1)
[2024-07-18 10:49] LABS: URIC ACID 9.6 MG/DL (3.1-7.8)
[2024-07-18] MEDS: oxyCODONE 5MG TAB PO ONE (12:01)
[2024-07-18] MEDS ORDERED: GABA-1171 PO (13:43)
[2024-07-18 13:50] VITALS: BP 137/84; TEMP 97; O2SAT 96
[2024-07-18] MEDS: GABAPENTIN 100 MG CAP PO ONE (14:05)
== END 2024-07-18 14:15 | disposition home or self-care (01) ==
LOC: M ED 08:32
DX: G90.09 Other idiopathic peripheral autonomic neuropathy (principal); E11.51 Type 2 diabetes mellitus with diabetic peripheral angiopathy without gangrene; M51.36 Other intervertebral disc degeneration, lumbar region; I10 Essential (primary) hypertension; E78.5 Hyperlipidemia, unspecified; J44.9 Chronic obstructive pulmonary disease, unspecified; F17.210 Nicotine dependence, cigarettes, uncomplicated; F10.10 Alcohol abuse, uncomplicated; Z88.8 Allergy status to other drugs, medicaments and biological substances; Z79.1 Long term (current) use of non-steroidal anti-inflammatories (NSAID); Z79.51 Long term (current) use of inhaled steroids; Z79.4 Long term (current) use of insulin; Z79.899 Other long term (current) drug therapy

== ENCOUNTER → 2024-07-25 | Outpatient (REF) | payer MEDICARE, MEDICAID ==
[~2024-07-25] MED LIST changes: +FURO20TA2; +GABA-1171 PO; +JANU100T
== END ==
LOC: M LAB REF 16:49
PROVIDERS: ATTEND Nurse Practitioner Family
DX: N39.0 Urinary tract infection, site not specified (principal)

== ENCOUNTER → 2024-08-09 | Outpatient (REF) | payer MEDICARE, MEDICAID ==
[~2024-08-09] MED LIST changes: +AMLO1TAB25; +NICO10SP; +ROSU10TA61
== END ==
LOC: M LAB REF 10:13
PROVIDERS: ATTEND Specialist
DX: Z01.89 Encounter for other specified special examinations (principal)

== ENCOUNTER → 2024-09-04 | Outpatient (CLI) | payer MEDICARE, MEDICAID ==
[~2024-09-04] MED LIST changes: +LIDOCAINE 1% MDV 20ML VIAL As Ordered ONE
[2024-09-04 12:15] VITALS: TEMP 97.4
[2024-09-04 12:28] LABS: BASO # 0.1 10^3/uL (0.0-0.2); BASO % 0.9 % (0.0-1.0); EOS # 0.4 10^3/uL (0.0-0.5); EOS % 4.1 % (0.0-3.0); HEMATOCRIT 38.5 % (36.0-47.0); HEMOGLOBIN 12.5 g/dl (12.0-15.5); LYMPH # 2.2 10^3/uL (1.5-5.0); LYMPH % 20.5 % (24.0-44.0); MEAN CORPUSCULAR HEMOGLOBIN 29.4 pg (27.0-33.0); MEAN CORPUSCULAR HGB CONC 32.5 g/dl (32.0-36.5); MEAN CORPUSCULAR VOLUME 90.6 fl (80.0-96.0); MONO % 9.1 % (2.0-8.0); PLATELET COUNT, AUTOMATED 395 10^3/uL (150-450); RED BLOOD COUNT 4.25 10^6/uL (4.00-5.40); WHITE BLOOD COUNT 10.7 10^3/uL (4.0-10.0)
[2024-09-04 13:15] VITALS: BP 145/78; O2SAT 94
== END ==
LOC: M IRPRO 11:47
PROVIDERS: ATTEND Specialist
DX: D47.2 Monoclonal gammopathy (principal)

== ENCOUNTER → 2024-10-17 | Outpatient (REF) | payer MEDICARE, MEDICAID ==
[~2024-10-17] MED LIST changes: -LIDOCAINE 1% MDV 20ML VIAL As Ordered ONE
== END ==
LOC: M LAB REF 17:05
PROVIDERS: ATTEND Nurse Practitioner Family
DX: N39.0 Urinary tract infection, site not specified (principal)

== ENCOUNTER → 2025-03-06 | Outpatient (CLI) | payer MEDICARE, MEDICAID ==
[~2025-03-06] MED LIST changes: -AMIT24CA7 PO; +LUBI24CA32 PO; +SENS60TA PO; +SENS90TA PO
== END ==
LOC: M WHC 12:10
PROVIDERS: ATTEND Nurse Practitioner Women's Health
DX: Z12.31 Encounter for screening mammogram for malignant neoplasm of breast (principal); N64.9 Disorder of breast, unspecified
CPT/HCPCS: 77066; G0279